=== PATIENT | female | born 2000 | race Two or more races ===

== ENCOUNTER 2024-06-02 13:40 | Outpatient (CLI) | payer OTHER | END 2024-06-02 13:43 | disposition home or self-care (01) | LOC: PRENATAL 13:40 | PROVIDERS: ATTEND Obstetrics & Gynecology Maternal & Fetal Medicine | DX: O44.00 Complete placenta previa NOS or without hemorrhage, unspecified trimester (principal); Z3A.20 20 weeks gestation of pregnancy ==

== ENCOUNTER 2024-08-25 08:19 | Outpatient (CLI) | payer OTHER | END 2024-08-25 08:20 | disposition home or self-care (01) | LOC: PRENATAL 08:19 | PROVIDERS: ATTEND Obstetrics & Gynecology Maternal & Fetal Medicine | DX: O26.849 Uterine size-date discrepancy, unspecified trimester (principal); O36.8199 Decreased fetal movements, unspecified trimester, other fetus; O24.419 Gestational diabetes mellitus in pregnancy, unspecified control; Z3A.33 33 weeks gestation of pregnancy ==

== ENCOUNTER → 2024-09-22 09:45 | Outpatient (CLI) | payer OTHER ==
[~2024-09-22 09:45] MED LIST: ALCOHOL PADS1 EACH TOP; HUMULIN N100 UNIT/2 SUBCUTANEO; INSULIN SYRING1 EA29 SUBCUTANEO
== END | disposition home or self-care (01) ==
LOC: PRENATAL 09:45
PROVIDERS: ATTEND Obstetrics & Gynecology Maternal & Fetal Medicine
DX: O26.849 Uterine size-date discrepancy, unspecified trimester (principal); O36.8199 Decreased fetal movements, unspecified trimester, other fetus; O24.419 Gestational diabetes mellitus in pregnancy, unspecified control; Z3A.36 36 weeks gestation of pregnancy